=== PATIENT | male | born 1965 | race Caucasian/White ===

== ENCOUNTER 2020-06-01 14:59 | Emergency (ER) | payer MEDICAID ==
[2020-06-01] MEDS ORDERED: Sodium Chloride 0.9% 2.5 ML Syringe FLUSH PRN (15:16)
[2020-06-01] MEDS ORDERED: Sodium Chloride 0.9% 10 ML Syringe FLUSH PRN (15:16)
--- NOTE | 2020-06-01 15:55 | CR ---
Chest: AP portable view of the chest was obtained. Comparison: No prior chest imaging is available. Diffusely opacified right hemithorax is seen. Finding may represent large right-sided pleural effusion if patient has had no previous surgery. There is no acute parenchymal change within the left chest. Bony structures are grossly intact. Impression: 1. Diffusely opacified right hemithorax as described above. Diagnostic code #5 This report was dictated in MDT
[2020-06-01 16:11] LABS: BLOOD UREA NITROGEN,BUN 19 mg/dL (7.0-18.0); CARBON DIOXIDE,CO2 29.1 mmol/L (21.0-32.0); CHLORIDE,CL 104 mmol/L (98-107); GLUCOSE RANDOM 135 mg/dL (74-106); LIPASE 114 U/L (73-393); POTASSIUM,K 3.8 mmol/L (3.5-5.1); SODIUM,NA 139 mmol/L (136-148)
--- NOTE | 2020-06-01 16:22 | EDM.PDOC ---
ED HPI GENERAL MEDICAL PROBLEM - General Chief Complaint: General Stated Complaint: POSSIBLE FLUID IN ABDOMEN Time Seen by Provider: 06/01/20 15:04 - History of Present Illness INITIAL COMMENTS - FREE TEXT/NARRATIVE: HISTORY AND PHYSICAL: History of present illness: This 54-year-old male with a past medical history of hepatitis C, liver cancer, right-sided pleural effusion, and chronic peripheral edema presents emergency department complaining of abdominal pain and distention. Patient states that he has had paracentesis in the past and a thoracentesis and also had a pleurodesis secondary to chronic recurrent pleural effusion on the right side. Patient states that he now has generalized abdominal pain and tenderness that is worsening. Feels very tense. Hurts all the time. And is worried because this is new for him. In the past he has not required high-volume paracentesis. Review of systems: A 10-point review of systems, other than pertinent positives and negatives as stated per HPI, is otherwise negative. Past medical history: As per history of present illness and as reviewed below otherwise noncontributory. Surgical history: As per history of present illness and as reviewed below otherwise noncontr ibutory. Social history: No reported history of drug or alcohol abuse. Family history: As per history of present illness and as reviewed below otherwise noncontributory. Physical exam: VITAL SIGNS: Reviewed. GENERAL: Appears chronically ill with stigmata of liver failure. HEAD: No signs of head trauma. EYES: Pupils are equal. Extraocular motions intact. EARS: Hearing grossly intact. MOUTH: Oropharynx is normal. NECK: Bilateral JVD, no adenopathy CHEST: No breath sounds on the right side. Left-sided breath sounds are normal CARDIAC: Mild tachycardia. No murmur appreciated. VASCULAR: Peripheral pulses normal and equal in all extremities. ABDOMEN: Tense distention, ascitic wave, pain with percussion. Hepatomegaly is present MUSCULOSKELETAL: Bilateral lower extremity edema with compression dressings. NEUROLOGIC EXAM: Alert and oriented x 3. No focal sensory or motor deficits. Speech normal. Follows commands. PSYCHIATRIC: Mood normal. SKIN: No rash or lesions. Initial Differential Diagnosis & Plan: Differential diagnosis includes SBP, ascites, pleural effusion, worsening of metastasis. I will evaluate for SBP with paracentesis. Will obtain baseline labs, chest x- ray and EKG. Definitive disposition and diagnosis as appropriate pending reevaluation and review of above. generalized Pain Score (Numeric/FACES): 6 - Related Data Allergies Allergy/AdvReac Type Severity Reaction Status Date / Time codeine Allergy Other Verified 06/01/20 15:22 ketorolac [From Toradol] Allergy Headache Verified 06/01/20 15:22 Home Meds: Home Meds Furosemide [Lasix] ASDIRECTED 06/01/20 [History] dexAMETHasone [Dexamethasone] 2 mg PO DAILY 06/01/20 [History] oxyCODONE 5 mg PO Q4H 06/01/20 [History] oxyCODONE ER [OxyCONTIN] 20 mg PO BID 06/01/20 [History] Past Medical History Oncologic (Cancer) History: Reports: Liver - Past Surgical History Other Respiratory Surgeries/Procedures: pleurral effusion Other GI Surgeries/Procedures: paracentesis as needed. Social & Family History - Tobacco Use Smoking Status *Q: Never Smoker - Recreational Drug Use Recreational Drug Use: Yes Recreational Drug Type: Reports: Marijuana/Hashish Recreational Drug Use Frequency: Socially ED ROS GENERAL - Review of Systems Review Of Systems: See Below (noted) ED EXAM, GENERAL - Physical Exam Exam: See Below (noted) ED GENERAL MEDICAL PROCEDURES - Additional/Other Procedure(s) Other (Free Text) Procedure(s): LIMITED ABDOMINAL ULTRASOUND BY ER PROVIDER Self performed and read; images archived Location: Abdomen Indication: Distension Image archived 1. Liver identified 2. Large ascites seen 3. Floating bowel noted Impression: Ascites noted Signed by: Dru Mei MD PROCEDURE: ULTRASOUND GUIDED PARACENTESIS INDICATION: Evaluation of Ascites INFORMED CONSENT: The risks, benefits, and alternatives to the procedure were discussed with the patient including but not limited to bleeding, infection, or damage to surrounding structures such as vessels or intra-abdominal organs. The patient expressed understanding and wishes to proceed with the procedure. PROCEDURE DETAILS: A fluid pocket was identified in the patients using bedside ultrasound. The patient's abdomen was then prepped and draped in a sterile fashion using chlorhexidine solution and drapes. The skin overlying this area was anesthetized with 10cc 1% lidocaine without epinephrine. The paracentesis catheter over needle was introduced into the peritoneal space. Straw-colored colored fluid was obtained with gentle suction on the syringe. The needle was withdrawn, and the catheter was placed to suction using sterile suction containers. A total of 2500 cc of fluid was obtained. The catheter then was withdrawn, and a bandage was applied. COMPLICATIONS: None; the patient tolerated the procedure well without any immediate complications. 12 lead EKG interpretation Obtained: June 01, 2020 at 1527 hrs. Rhythm: Sinus Rate: 6 [place]: Normal Intervals: Left ventricular hypertrophy is noted ST/T Segments: No acute ischemic changes Interpretation: This rhythm with left ventricular hypertrophy Course - Vital Signs Last Recorded V/S: Last Vital Signs Temp 97.0 F 06/01/20 15:13 Pulse 86 06/01/20 16:24 Resp 14 06/01/20 16:24 BP 110/74 06/01/20 16:24 Pulse Ox 95 06/01/20 16:24 - Orders/Labs/Meds Orders: Active Orders 24 hr Category Date Time Status Cardiac Monitoring [RC] . DIRECTED Care 06/01/20 15:16 Active EKG Documentation Completion [RC] STAT Care 06/01/20 15:17 Active Pulse Oximetry [RC] ASDIRECTED Care 06/01/20 15:16 Active CULTURE BLOOD [BC] Stat Lab 06/01/20 15:50 Results CULTURE BLOOD [BC] Stat Lab 06/01/20 15:53 Results CULTURE BODY FLUID + SMEAR [RM] Stat Lab 06/01/20 15:57 Received Sodium Chloride 0.9% [Saline Flush] Med 06/01/20 15:16 Active 10 ml FLUSH ASDIRECTED PRN Sodium Chloride 0.9% [Saline Flush] Med 06/01/20 15:16 Active 2.5 ml FLUSH ASDIRECTED PRN Blood Culture x2 Reflex Set [OM.PC] Stat Oth 06/01/20 15:17 Ordered Saline Lock Insert [OM.PC] Stat Oth 06/01/20 15:16 Ordered Medication Orders Sodium Chloride (Saline Flush) 10 ml FLUSH ASDIRECTED PRN PRN Reason: Keep Vein Open Last Admin: 06/01/20 15:36 Dose: 10 ml Documented by: LJ Sodium Chloride (Saline Flush) 2.5 ml FLUSH ASDIRECTED PRN PRN Reason: Keep Vein Open Last Admin: 06/01/20 15:36 Dose: 2.5 ml Documented by: LJ Labs: Laboratory Tests 06/01/20 06/01/20 06/01/20 Range/Units 15:26 15:26 15:26 WBC 8.62 (4.0-11.0) K/uL RBC 3.48 L (4.50-5.90) M/uL Hgb 9.9 L (13.0-17.0) g/dL Hct 32.1 L (38.0-50.0) % MCV 92.2 (80.0-98.0) fL MCH 28.4 (27.0-32.0) pg MCHC 30.8 L (31.0-37.0) g/dL RDW Std Deviation 58.6 (28.0-62.0) fl RDW Coeff of Lanny 17 H (11.0-15.0) % Plt Count 144 L (150-400) K/uL MPV 11.10 (7.40-12.00) fL Neut % (Auto) 73.1 (48.0-80.0) % Lymph % (Auto) 15.9 L (16.0-40.0) % [place] % (Auto) 8.2 (0.0-15.0) % Eos % (Auto) 2.3 (0.0-7.0) % Baso % (Auto) 0.5 (0.0-1.5) % Neut # (Auto) 6.3 H (1.4-5.7) K/uL Lymph # (Auto) 1.4 (0.6-2.4) K/uL [place] # (Auto) 0.7 (0.0-0.8) K/uL Eos # (Auto) 0.2 (0.0-0.7) K/uL Baso # (Auto) 0.0 (0.0-0.1) K/uL Nucleated RBC % 0.0 /100WBC Nucleated RBCs # 0 K/uL INR 1.15 APTT 29.5 (18.6-31.3) SEC Lactate 1.3 (0.20-2.00) mmol/L Sodium (136-148) mmol/L Potassium (3.5-5.1) mmol/L Chloride (98-107) mmol/L Carbon Dioxide (21.0-32.0) mmol/L BUN (7.0-18.0) mg/dL Creatinine (0.8-1.3) mg/dL Est Cr Clr Drug Dosing mL/min Estimated GFR (MDRD) ml/min Glucose (74-106) mg/dL Calcium (8.5-10.1) mg/dL Total Bilirubin (0.2-1.0) mg/dL AST (15-37) IU/L ALT (14-63) IU/L Alkaline Phosphatase (46-116) U/L Total Protein (6.4-8.2) g/dL Albumin (3.4-5.0) g/dL Globulin (2.6-4.0) g/dL Albumin/Globulin Ratio (0.9-1.6) Lipase (73-393) U/L Fluid Type Fluid Color Fluid Appearance Fluid WBC /uL Fluid RBC /uL Fluid Mononuclear Cell % Fl Polymorphonucl Cell % 06/01/20 06/01/20 Range/Units 15:26 15:57 WBC (4.0-11.0) K/uL RBC (4.50-5.90) M/uL Hgb (13.0-17.0) g/dL Hct (38.0-50.0) % MCV (80.0-98.0) fL MCH (27.0-32.0) pg MCHC (31.0-37.0) g/dL RDW Std Deviation (28.0-62.0) fl RDW Coeff of Lanny (11.0-15.0) % Plt Count (150-400) K/uL MPV (7.40-12.00) fL Neut % (Auto) (48.0-80.0) % Lymph % (Auto) (16.0-40.0) % [place] % (Auto) (0.0-15.0) % Eos % (Auto) (0.0-7.0) % Baso % (Auto) (0.0-1.5) % Neut # (Auto) (1.4-5.7) K/uL Lymph # (Auto) (0.6-2.4) K/uL [place] # (Auto) (0.0-0.8) K/uL Eos # (Auto) (0.0-0.7) K/uL Baso # (Auto) (0.0-0.1) K/uL Nucleated RBC % /100WBC Nucleated RBCs # K/uL INR APTT (18.6-31.3) SEC Lactate (0.20-2.00) mmol/L Sodium 139 (136-148) mmol/L Potassium 3.8 (3.5-5.1) mmol/L Chloride 104 (98-107) mmol/L Carbon Dioxide 29.1 (21.0-32.0) mmol/L BUN 19 H (7.0-18.0) mg/dL Creatinine 1.0 (0.8-1.3) mg/dL Est Cr Clr Drug Dosing 86.18 mL/min Estimated GFR (MDRD) > 60.0 ml/min Glucose 135 H (74-106) mg/dL Calcium 9.2 (8.5-10.1) mg/dL Total Bilirubin 1.5 H (0.2-1.0) mg/dL AST 61 H (15-37) IU/L ALT 51 (14-63) IU/L Alkaline Phosphatase 235 H (46-116) U/L Total Protein 6.5 (6.4-8.2) g/dL Albumin 2.3 L (3.4-5.0) g/dL Globulin 4.2 H (2.6-4.0) g/dL Albumin/Globulin Ratio 0.6 L (0.9-1.6) Lipase 114 (73-393) U/L Fluid Type OTH Fluid Color YELLOW Fluid Appearance SLIGHTLY CLOUDY Fluid WBC 227 /uL Fluid RBC < 3000 /uL Fluid Mononuclear Cell 87 % Fl Polymorphonucl Cell 13 % Meds: Medications Generic Name Dose Route Start Last Admin Trade Name Freq PRN Reason Stop Dose Admin Sodium Chloride 10 ml 06/01/20 15:16 06/01/20 15:36 Saline Flush FLUSH 10 ml ASDIRECTED PRN Administration Keep Vein Open Sodium Chloride 2.5 ml 06/01/20 15:16 06/01/20 15:36 Saline Flush FLUSH 2.5 ml ASDIRECTED PRN Administration Keep Vein Open Departure - Departure Time of Disposition: 16:54 Disposition: Home, Self-Care 01 Condition: Good Clinical Impression: Abdominal ascites, Pleural effusion, Edema - Discharge Information *PRESCRIPTION DRUG MONITORING PROGRAM REVIEWED*: Not Applicable *COPY OF PRESCRIPTION DRUG MONITORING REPORT IN PATIENT JOHN: Not Applicable Instructions: Paracentesis, Care After, Pleural Effusion, Edema, Scrotal Swelling Referrals: PCP,Not In Area [Primary Care Provider] - Forms: ED Department Discharge Additional Instructions: The following information is given to patients seen in the emergency department who are being discharged to home. This information is to outline your options for follow-up care. We provide all patients seen in our emergency department with a follow-up referral. The need for follow-up, as well as the timing and circumstances, are variable depending upon the specifics of your emergency department visit. If you don't have a primary care physician on staff, we will provide you with a referral. We always advise you to contact your personal physician following an emergency department visit to inform them of the circumstance of the visit and for follow-up with them and/or the need for any referrals to a consulting specialist. The emergency department will also refer you to a specialist when appropriate. This referral assures that you have the opportunity for follow-up care with a specialist. All of these measure are taken in an effort to provide you with optimal care, which includes your follow-up. Thank you for coming to the [facility] urgency department for your care today. It was Dr. Mei's pleasure to take care of you. Please take your medications as prescribed. You may need to increase your diuretic dose. I recommend taking an additional tablet of your diuretic once daily for 5 to 7 days. This should help your swelling. Please return for worsening, pain, or any other concerns. Under all circumstances we always encourage you to contact your private physician who remains a resource for coordinating your care. When calling for follow-up care, please make the office aware that this follow-up is from your recent emergency room visit. If for any reason you are refused follow-up, please contact the [facility] Emergency Department at and asked to speak to the emergency department charge nurse. Sepsis Event Note (ED) - Evaluation Sepsis Screening Result: No Definite Risk - Focused Exam Vital Signs: Vital Signs Temp Pulse Resp BP Pulse Ox 06/01/20 16:24 86 14 110/74 95 06/01/20 16:00 88 15 136/76 97 06/01/20 15:13 97.0 F 89 17 108/75 94 L - My Orders Last 24 Hours: My Active Orders 06/01/20 15:16 Cardiac Monitoring [RC] . DIRECTED Pulse Oximetry [RC] ASDIRECTED Sodium Chloride 0.9% [Saline Flush] 10 ml FLUSH ASDIRECTED PRN Sodium Chloride 0.9% [Saline Flush] 2.5 ml FLUSH ASDIRECTED PRN Saline Lock Insert [OM.PC] Stat 06/01/20 15:17 EKG Documentation Completion [RC] STAT Blood Culture x2 Reflex Set [OM.PC] Stat 06/01/20 15:50 CULTURE BLOOD [BC] Stat 06/01/20 15:53 CULTURE BLOOD [BC] Stat 06/01/20 15:57 CULTURE BODY FLUID + SMEAR [RM] Stat - Assessment/Plan Last 24 Hours: My Active Orders 06/01/20 15:16 Cardiac Monitoring [RC] . DIRECTED Pulse Oximetry [RC] ASDIRECTED Sodium Chloride 0.9% [Saline Flush] 10 ml FLUSH ASDIRECTED PRN Sodium Chloride 0.9% [Saline Flush] 2.5 ml FLUSH ASDIRECTED PRN Saline Lock Insert [OM.PC] Stat 06/01/20 15:17 EKG Documentation Completion [RC] STAT Blood Culture x2 Reflex Set [OM.PC] Stat 06/01/20 15:50 CULTURE BLOOD [BC] Stat 06/01/20 15:53 CULTURE BLOOD [BC] Stat 06/01/20 15:57 CULTURE BODY FLUID + SMEAR [RM] Stat
== END 2020-06-01 17:12 | disposition home or self-care (01) ==
LOC: MW.ED 14:59
DX: R18.8 Other ascites (principal); J90 Pleural effusion, not elsewhere classified; R00.0 Tachycardia, unspecified; Z88.5 Allergy status to narcotic agent; Z88.6 Allergy status to analgesic agent; Z79.899 Other long term (current) drug therapy
CPT/HCPCS: 36415; 49083; 71045; 71045-26; 80053; 83605; 83690; 85025; 85610; 85730; 87040; 87070; 87205; 89050; 93005; 99284-25

== ENCOUNTER 2020-06-23 16:28 | Emergency (ER) | payer MEDICAID, OTHER ==
--- NOTE | 2020-06-23 17:17 | EDM.PDOC ---
<Dario Serna - Last Filed: 06/23/20 19:33> ED HPI GENERAL MEDICAL PROBLEM - General Chief Complaint: General Stated Complaint: FLUID BUILD UP Time Seen by Provider: 06/23/20 16:37 Source of Information: Reports: Patient, Old Records History Limitations: Reports: No Limitations - History of Present Illness INITIAL COMMENTS - FREE TEXT/NARRATIVE: 54-year-old male with past medical history of metastatic hepatocellular carcinoma, hepatitis C, recurrent pleural effusion status post pleural thesis presenting with abdominal distention, abdominal pain, and peripheral edema. Patient has been seen in the emergency department several times for recurrent ascites due to his liver cancer. He feels that his ascites has reaccumulated and he complains of typical abdominal distention and pain. Denies any fever, chills, emesis, hematemesis, diarrhea, or GI bleed. He is concerned that he may need a therapeutic paracentesis for symptomatic relief. He is not on anticoagulation. Patient is new to [place] and has most of his physician care established in [place]. He is not currently under the care of a primary physician, oncologist, or a palliative medicine clinic. ROS: A 10-point review of systems was negative, except as noted in the HPI (or in the ROS section of this note). Past medical history: Reviewed, no additional pertinent history. Surgical history: Reviewed in system, no additional pertinent history. Social history: Reviewed in system, no additional pertinent history. Family history: Reviewed in system, no additional pertinent history. PHYSICAL EXAM Vital signs reviewed. Nursing notes reviewed. Constitutional: Awake, alert, non-distressed. Head: Normocephalic, atraumatic. Eyes: EOMI, conjunctiva normal, no discharge, no scleral icterus. Ears, Nose, Throat: External ears and nose normal, moist oral mucosa. Cardiovascular: 2+ radial pulse, capillary refill less than 2 seconds. Pulmonary: normal work of breathing, no accessory muscle use. Mildly diminished lung sounds in the bases. On nasal cannula. Abdomen/GI: Ascitic/distended, nontender, no guarding or rigidity, no masses. Musculoskeletal: No deformities. Integumentary: Appropriate color for ethnicity, warm, dry, no pallor or jaundice, no rash. Neurologic: Alert, answering questions appropriately, normal speech, no facial droop, moving all extremities well. Psychiatric: Appropriate mood and affect, normal thought process. general Pain Score (Numeric/FACES): 9 - Related Data Allergies Allergy/AdvReac Type Severity Reaction Status Date / Time codeine Allergy Other Verified 06/23/20 17:06 ketorolac [From Toradol] Allergy Headache Verified 06/23/20 17:06 Home Meds: Home Meds Furosemide [Lasix] ASDIRECTED 06/01/20 [History] dexAMETHasone [Dexamethasone] 2 mg PO DAILY 06/01/20 [History] oxyCODONE 5 mg PO Q4H 06/01/20 [History] oxyCODONE ER [OxyCONTIN] 20 mg PO BID 06/01/20 [History] oxyCODONE 5 mg PO Q4H 3 Days #18 tab 06/23/20 [Rx] oxyCODONE ER [OxyCONTIN] 20 mg PO Q12HR PRN 5 Days #10 tab.er 06/23/20 [Rx] Past Medical History - Past Health History Medical/Surgical History: Denies Medical/Surgical History Respiratory History: Reports: Other (See Below) Oncologic (Cancer) History: Reports: Liver - Past Surgical History Other Respiratory Surgeries/Procedures: pleurral effusion Other GI Surgeries/Procedures: paracentesis as needed. Social & Family History - Tobacco Use Smoking Status *Q: Never Smoker - Caffeine Use Caffeine Use: Reports: None - Recreational Drug Use Recreational Drug Use: Yes Recreational Drug Type: Reports: Marijuana/Hashish Recreational Drug Use Frequency: Socially ED ROS GENERAL - Review of Systems Review Of Systems: See Below ED EXAM, GENERAL - Physical Exam Exam: See Below Course - Vital Signs Text/Narrative:: Labs show mild normocytic anemia, mild thrombocytopenia. INR normal, electrolytes reassuring. Normal renal function. Troponin negative. Bilirubin elevated at 1.6. Alkaline phosphatase 177. Mildly low calcium. Chest x-ray shows a stable large right-sided pleural effusion, patient is status post right- sided pleurodesis. Oxygen use by nasal cannula seems to be at baseline the patient has no symptoms of acute respiratory compromise. Given oxycodone for pain. Informed consent was obtained and the patient underwent therapeutic paracentesis by myself as dictated in the procedure note. We will plan to drain a total of 3 L of ascitic fluid. Labs were sent off to evaluate for SBP. These are pending at time of shift change, my colleague Dr. Garcia will follow up on the results, anticipate discharge home. Patient will need to be referred to family medicine clinic here in [place] to establish primary care. Departure - Departure Disposition: Home, Self-Care 01 Clinical Impression: Ascites Qualifiers: Ascites type: malignant Qualified Code(s): R18.0 - Malignant ascites - Discharge Information Prescriptions: oxyCODONE 5 mg PO Q4H 3 Days #18 tab oxyCODONE ER [OxyCONTIN] 20 mg PO Q12HR PRN 5 Days #10 tab.er PRN Reason: Pain Instructions: Ascites Drainage Catheter Placement, Ascites, Liver Cancer Referrals: [facility] [Outside] [facility] [Ordering Only Provider] - Forms: ED Department Discharge Additional Instructions: The following information is given to patients seen in the emergency department who are being discharged to home. This information is to outline your options for follow-up care. We provide all patients seen in our emergency department with a follow-up referral. The need for follow-up, as well as the timing and circumstances, are variable depending upon the specifics of your emergency department visit. If you don't have a primary care physician on staff, we will provide you with a referral. We always advise you to contact your personal physician following an emergency department visit to inform them of the circumstance of the visit and for follow-up with them and/or the need for any referrals to a consulting specialist. The emergency department will also refer you to a specialist when appropriate. This referral assures that you have the opportunity for follow-up care with a specialist. All of these measure are taken in an effort to provide you with optimal care, which includes your follow-up. Under all circumstances we always encourage you to contact your private ph ysician who remains a resource for coordinating your care. When calling for follow-up care, please make the office aware that this follow-up is from your recent emergency room visit. If for any reason you are refused follow-up, please contact the [facility] Emergency Department at and asked to speak to the emergency department charge nurse. Sepsis Event Note (ED) - Evaluation Sepsis Screening Result: No Definite Risk ED ABDOMINAL/GI PROCEDURES - Additional/Other Procedure(s) Procedure(s) (Free Text): PROCEDURE: THERAPEUTIC PARACENTESIS Consent: obtained written, placed in chart Indication: Ascites Location: Abdomen - right lower quadrant Anesthesia: Local, 1% Lidocaine 2mL Technique: sterile, standard Details: ultrasound used to locate landmarks catheter over needle Complications: None apparent Fluid: straw-colored Volume Removed: 3,000 mL <Ron Garcia - Last Filed: 06/23/20 19:56> Course - Vital Signs Last Recorded V/S: Last Vital Signs Temp 97.9 F 06/23/20 17:00 Pulse 80 06/23/20 18:55 Resp 16 06/23/20 17:00 BP 110/53 L 06/23/20 18:55 Pulse Ox 98 06/23/20 18:55 - Orders/Labs/Meds Orders: Active Orders 24 hr Category Date Time Status CULTURE BODY FLUID + SMEAR [RM] Stat Lab 06/23/20 18:31 Received Labs: Laboratory Tests 06/23/20 06/23/20 06/23/20 Range/Units 17:24 17:24 17:24 WBC 7.05 (4.0-11.0) K/uL RBC 3.56 L (4.50-5.90) M/uL Hgb 10.3 L (13.0-17.0) g/dL Hct 32.1 L (38.0-50.0) % MCV 90.2 (80.0-98.0) fL MCH 28.9 (27.0-32.0) pg MCHC 32.1 (31.0-37.0) g/dL RDW Std Deviation 54.6 (28.0-62.0) fl RDW Coeff of Lanny 16 H (11.0-15.0) % Plt Count 140 L (150-400) K/uL MPV 10.90 (7.40-12.00) fL Neut % (Auto) 74.4 (48.0-80.0) % Lymph % (Auto) 12.9 L (16.0-40.0) % Cotton % (Auto) 10.6 (0.0-15.0) % Eos % (Auto) 1.8 (0.0-7.0) % Baso % (Auto) 0.3 (0.0-1.5) % Neut # (Auto) 5.2 (1.4-5.7) K/uL Lymph # (Auto) 0.9 (0.6-2.4) K/uL Cotton # (Auto) 0.8 (0.0-0.8) K/uL Eos # (Auto) 0.1 (0.0-0.7) K/uL Baso # (Auto) 0.0 (0.0-0.1) K/uL Nucleated RBC % 0.0 /100WBC Nucleated RBCs # 0 K/uL INR 1.22 Sodium 135 L (136-148) mmol/L Potassium 3.8 (3.5-5.1) mmol/L Chloride 102 (98-107) mmol/L Carbon Dioxide 28.2 (21.0-32.0) mmol/L BUN 14 (7.0-18.0) mg/dL Creatinine 1.2 (0.8-1.3) mg/dL Est Cr Clr Drug Dosing 69.55 mL/min Estimated GFR (MDRD) > 60.0 ml/min Glucose 119 H (74-106) mg/dL Calcium 8.1 L (8.5-10.1) mg/dL Total Bilirubin 1.6 H (0.2-1.0) mg/dL AST 62 H (15-37) IU/L ALT 44 (14-63) IU/L Alkaline Phosphatase 177 H (46-116) U/L Troponin I (0.000-0.056) ng/mL Total Protein 6.2 L (6.4-8.2) g/dL Albumin 2.4 L (3.4-5.0) g/dL Globulin 3.8 (2.6-4.0) g/dL Albumin/Globulin Ratio 0.6 L (0.9-1.6) Fluid Type Fluid Color Fluid Appearance Fluid WBC /uL Fluid RBC /uL Fluid Mononuclear Cell % Fl Polymorphonucl Cell % Fluid Glucose mg/dL Fluid Albumin g/dL 06/23/20 06/23/20 Range/Units 17:24 18:31 WBC (4.0-11.0) K/uL RBC (4.50-5.90) M/uL Hgb (13.0-17.0) g/dL Hct (38.0-50.0) % MCV (80.0-98.0) fL MCH (27.0-32.0) pg MCHC (31.0-37.0) g/dL RDW Std Deviation (28.0-62.0) fl RDW Coeff of Lanny (11.0-15.0) % Plt Count (150-400) K/uL MPV (7.40-12.00) fL Neut % (Auto) (48.0-80.0) % Lymph % (Auto) (16.0-40.0) % Cotton % (Auto) (0.0-15.0) % Eos % (Auto) (0.0-7.0) % Baso % (Auto) (0.0-1.5) % Neut # (Auto) (1.4-5.7) K/uL Lymph # (Auto) (0.6-2.4) K/uL Cotton # (Auto) (0.0-0.8) K/uL Eos # (Auto) (0.0-0.7) K/uL Baso # (Auto) (0.0-0.1) K/uL Nucleated RBC % /100WBC Nucleated RBCs # K/uL INR Sodium (136-148) mmol/L Potassium (3.5-5.1) mmol/L Chloride (98-107) mmol/L Carbon Dioxide (21.0-32.0) mmol/L BUN (7.0-18.0) mg/dL Creatinine (0.8-1.3) mg/dL Est Cr Clr Drug Dosing mL/min Estimated GFR (MDRD) ml/min Glucose (74-106) mg/dL Calcium (8.5-10.1) mg/dL Total Bilirubin (0.2-1.0) mg/dL AST (15-37) IU/L ALT (14-63) IU/L Alkaline Phosphatase (46-116) U/L Troponin I < 0.050 (0.000-0.056) ng/mL Total Protein (6.4-8.2) g/dL Albumin (3.4-5.0) g/dL Globulin (2.6-4.0) g/dL Albumin/Globulin Ratio (0.9-1.6) Fluid Type PER Fluid Color YELLOW Fluid Appearance SLIGHTLY CLOUDY Fluid WBC 197 /uL Fluid RBC < 3000 /uL Fluid Mononuclear Cell 94 % Fl Polymorphonucl Cell 6 % Fluid Glucose 136 mg/dL Fluid Albumin <0.6 g/dL Meds: Medications Discontinued Medications Generic Name Dose Route Start Last Admin Trade Name Nikolai PRN Reason Stop Dose Admin Hydromorphone HCl 1 mg 06/23/20 19:32 Dilaudid IVPUSH 06/23/20 19:33 ONETIME ONE Oxycodone HCl 10 mg 06/23/20 17:29 06/23/20 17:45 Oxycodone PO 06/23/20 17:30 10 mg ONETIME ONE Administration Oxycodone HCl Confirm 06/23/20 17:29 06/23/20 17:44 Oxycodone Administered 06/23/20 17:30 Not Given Dose 10 mg .ROUTE .STK-MED ONE - Re-Assessments/Exams Free Text/Narrative Re-Assessment/Exam: 06/23/20 19:44 Labs unremarkable; will d/c with FM f/u Departure - Departure Time of Disposition: 19:43 Condition: Good - Discharge Information *PRESCRIPTION DRUG MONITORING PROGRAM REVIEWED*: No *COPY OF PRESCRIPTION DRUG MONITORING REPORT IN PATIENT JOHN: No Sepsis Event Note (ED) - Focused Exam Vital Signs: Vital Signs Temp Pulse Resp BP Pulse Ox 06/23/20 18:55 80 110/53 L 98 06/23/20 18:41 82 100/53 L 97 06/23/20 18:36 84 109/56 L 97 06/23/20 17:56 83 139/75 98 06/23/20 17:00 97.9 F 95 16 124/67 95
[2020-06-23] MEDS ORDERED: oxyCODONE 5 MG Tab ONE (17:29)
[2020-06-23] MEDS ORDERED: oxyCODONE 5 MG Tab PO ONE (17:29)
[2020-06-23 17:56] LABS: BLOOD UREA NITROGEN,BUN 14 mg/dL (7.0-18.0); CARBON DIOXIDE,CO2 28.2 mmol/L (21.0-32.0); CHLORIDE,CL 102 mmol/L (98-107); GLUCOSE RANDOM 119 mg/dL (74-106); POTASSIUM,K 3.8 mmol/L (3.5-5.1); SODIUM,NA 135 mmol/L (136-148)
--- NOTE | 2020-06-23 19:31 | CR ---
INDICATION: Dyspnea. Known pleural effusion. TECHNIQUE: AP portable chest. COMPARISON: 06/01/2020. FINDINGS: Again seen is complete opacification of the right hemithorax. This is presumably related to a large pleural effusion given the clinical history. The left lung appears relatively well expanded and clear. There is no significant change in the visualized cardiac silhouette. No left-sided pleural effusion is seen. No left-sided pneumothorax. IMPRESSION: Stable radiographic appearance of the chest, with complete opacification of the right hemithorax presumably related a large pleural effusion, although other etiologies are not excluded. Dictated by Joshua Parks MD @ 06/23/2020 7:30:04 PM Dictated by: Joshua Parks MD @ 06/23/2020 19:30:09 (Electronically Signed)
[2020-06-23] MEDS ORDERED: HYDROmorphone 1 MG/ML Syringe IVPUSH ONE (19:32)
== END 2020-06-23 20:32 | disposition home or self-care (01) ==
LOC: MW.ED 16:28
DX: R18.0 Malignant ascites (principal); Z88.5 Allergy status to narcotic agent; Z88.6 Allergy status to analgesic agent
CPT/HCPCS: 36415; 49083; 71045; 80053; 82945; 84484; 85025; 85610; 87070; 87205; 89050; 99284; A9270; 99283

== ENCOUNTER 2020-07-14 16:14 | Emergency (ER) | payer MEDICAID, OTHER ==
[2020-07-14] MEDS ORDERED: Sodium Chloride 0.9% 10 ML Syringe FLUSH PRN (16:49)
[2020-07-14] MEDS ORDERED: Sodium Chloride 0.9% 2.5 ML Syringe FLUSH PRN (16:49)
[2020-07-14] MEDS ORDERED: HYDROmorphone 1 MG/ML Syringe IVPUSH ONE (16:51)
--- NOTE | 2020-07-14 17:00 | EDM.PDOC ---
ED HPI GENERAL MEDICAL PROBLEM - General Chief Complaint: Abdominal Pain Stated Complaint: ABDOMEN DRAINAGE Time Seen by Provider: 07/14/20 16:22 Source of Information: Reports: Patient - History of Present Illness INITIAL COMMENTS - FREE TEXT/NARRATIVE: History of present illness: 54-year-old male presenting with increased abdominal girth, distention, pain and difficulty breathing, previous similar symptoms due to ascites buildup. He has hep C and liver cancer with end-stage liver disease with frequent accumulations of ascitic fluid. Last drained via paracentesis in the emergency department here 3 weeks ago. He reports basically for the last 9 weeks he has been having every 3 week paracenteses done in the ER. He has not been able to follow-up outpatient with the primary care physician, radiologist or GI physician to schedule routine paracenteses due to his insurance. He has not had any fevers or chills. Does have pain from the distention and some shortness of breath although he also does report some chronic difficulty breathing for which he is on 3 to 4 L of oxygen [id number] chronically. Review of systems: As per history of present illness and below otherwise all systems reviewed and negative. Past medical history: As per history of present illness and as reviewed below otherwise noncontributory. Surgical history: As per history of present illness and as reviewed below otherwise noncontributory. Pleurodesis, paracentesis Social history: No reported history of drug or alcohol abuse. Family history: As per history of present illness and as reviewed below otherwise noncontributory. Physical exam: GEN: no acute distress, chronically ill-appearing HEENT: Atraumatic, normocephalic, mucous membranes moist, Neck: supple, nontender, trachea midline. Lungs: No respiratory distress. Heart: RRR Abdomen: Soft, very distended, ascites, +fluid wave, no signs of trauma, no focalized tenderness, mild diffuse tenderness Back: nontender Extremities: Atraumatic. Neurovascularly intact. Neuro: Awake, alert, oriented. Neuro Exam nonfocal. Skin: warm, dry, no lesions Diagnostics: Labs, ultrasound Therapeutics: [] MDM: Impression: [] Plan: [] Definitive disposition and diagnosis as appropriate pending reevaluation and review of above. Abdomen Pain Score (Numeric/FACES): 8 - Related Data Allergies Allergy/AdvReac Type Severity Reaction Status Date / Time codeine Allergy Other Verified 07/14/20 16:50 ketorolac [From Toradol] Allergy Headache Verified 07/14/20 16:50 Home Meds: Home Meds Furosemide [Lasix] 40 mg PO ASDIRECTED 06/01/20 [History] dexAMETHasone [Dexamethasone] 2 mg PO DAILY 06/01/20 [History] Spironolactone [Aldactone] 25 mg PO ASDIRECTED 07/14/20 [History] Past Medical History - Past Health History Medical/Surgical History: Denies Medical/Surgical History Respiratory History: Reports: Other (See Below) Oncologic (Cancer) History: Reports: Liver - Past Surgical History Other Respiratory Surgeries/Procedures: pleurral effusion Other GI Surgeries/Procedures: paracentesis as needed. Social & Family History - Caffeine Use Caffeine Use: Reports: None ED ROS GENERAL - Review of Systems Review Of Systems: See Below (See HPI) ED EXAM, GI/ABD - Physical Exam Exam: See Below (See HPI) Course - Vital Signs Text/Narrative:: Abdominal pain and distention, likely ascites reaccumulation. No fever or chills. Do not suspect SBP. However the patient does report increased difficulty with breathing and therefore will attempt paracentesis here. Bedside ultrasound performed which does show moderate ascites fluid. Radiology ultrasound also ordered, will check labs. Expected liver abnormalities. Serum WBC not elevated. Mildly anemic. Renal function preserved. Paracentesis successful. No cloudiness. Does not appear infectious. Culture, cell count and body fluid analysis all sent. No signs of infection on body fluid analysis labs. Last Recorded V/S: Last Vital Signs Temp 97.9 F 07/14/20 18:48 Pulse 93 07/14/20 18:48 Resp 18 07/14/20 18:48 BP 112/64 07/14/20 18:48 Pulse Ox 98 07/14/20 18:48 - Orders/Labs/Meds Orders: Active Orders 24 hr Category Date Time Status ALBUMIN,BODY FLUID [BF] Stat Lab 07/14/20 17:44 Results CULTURE BODY FLUID + SMEAR [RM] Stat Lab 07/14/20 17:44 Received Saline Lock Insert [OM.PC] Stat Oth 07/14/20 16:50 Ordered Labs: Laboratory Tests 07/14/20 07/14/20 07/14/20 Range/Units 17:10 17:10 17:10 WBC 7.03 (4.0-11.0) K/uL RBC 3.49 L (4.50-5.90) M/uL Hgb 10.0 L (13.0-17.0) g/dL Hct 31.2 L (38.0-50.0) % MCV 89.4 (80.0-98.0) fL MCH 28.7 (27.0-32.0) pg MCHC 32.1 (31.0-37.0) g/dL RDW Std Deviation 53.8 (28.0-62.0) fl RDW Coeff of Lanny 16 H (11.0-15.0) % Plt Count 158 (150-400) K/uL MPV 11.10 (7.40-12.00) fL Neut % (Auto) 85.9 H (48.0-80.0) % Lymph % (Auto) 8.5 L (16.0-40.0) % Humphreys % (Auto) 5.1 (0.0-15.0) % Eos % (Auto) 0.4 (0.0-7.0) % Baso % (Auto) 0.1 (0.0-1.5) % Neut # (Auto) 6.0 H (1.4-5.7) K/uL Lymph # (Auto) 0.6 (0.6-2.4) K/uL Humphreys # (Auto) 0.4 (0.0-0.8) K/uL Eos # (Auto) 0.0 (0.0-0.7) K/uL Baso # (Auto) 0.0 (0.0-0.1) K/uL Nucleated RBC % 0.0 /100WBC Nucleated RBCs # 0 K/uL INR 1.24 Sodium 136 (136-148) mmol/L Potassium 3.8 (3.5-5.1) mmol/L Chloride 98 (98-107) mmol/L Carbon Dioxide 27.8 (21.0-32.0) mmol/L BUN 18 (7.0-18.0) mg/dL Creatinine 1.3 (0.8-1.3) mg/dL Est Cr Clr Drug Dosing 66.29 mL/min Estimated GFR (MDRD) 57.3 ml/min Glucose 148 H (74-106) mg/dL Calcium 9.3 (8.5-10.1) mg/dL Total Bilirubin 1.6 H (0.2-1.0) mg/dL AST 63 H (15-37) IU/L ALT 46 (14-63) IU/L Alkaline Phosphatase 202 H (46-116) U/L Total Protein 6.8 (6.4-8.2) g/dL Albumin 2.6 L (3.4-5.0) g/dL Globulin 4.2 H (2.6-4.0) g/dL Albumin/Globulin Ratio 0.6 L (0.9-1.6) Fluid Type Fluid Color Fluid Appearance Fluid WBC /uL Fluid RBC /uL Fluid Mononuclear Cell % Fl Polymorphonucl Cell % Fluid Total Protein g/dL Fluid Albumin g/dL 07/14/20 07/14/20 Range/Units 17:44 17:44 WBC (4.0-11.0) K/uL RBC (4.50-5.90) M/uL Hgb (13.0-17.0) g/dL Hct (38.0-50.0) % MCV (80.0-98.0) fL MCH (27.0-32.0) pg MCHC (31.0-37.0) g/dL RDW Std Deviation (28.0-62.0) fl RDW Coeff of Lanny (11.0-15.0) % Plt Count (150-400) K/uL MPV (7.40-12.00) fL Neut % (Auto) (48.0-80.0) % Lymph % (Auto) (16.0-40.0) % Humphreys % (Auto) (0.0-15.0) % Eos % (Auto) (0.0-7.0) % Baso % (Auto) (0.0-1.5) % Neut # (Auto) (1.4-5.7) K/uL Lymph # (Auto) (0.6-2.4) K/uL Humphreys # (Auto) (0.0-0.8) K/uL Eos # (Auto) (0.0-0.7) K/uL Baso # (Auto) (0.0-0.1) K/uL Nucleated RBC % /100WBC Nucleated RBCs # K/uL INR Sodium (136-148) mmol/L Potassium (3.5-5.1) mmol/L Chloride (98-107) mmol/L Carbon Dioxide (21.0-32.0) mmol/L BUN (7.0-18.0) mg/dL Creatinine (0.8-1.3) mg/dL Est Cr Clr Drug Dosing mL/min Estimated GFR (MDRD) ml/min Glucose (74-106) mg/dL Calcium (8.5-10.1) mg/dL Total Bilirubin (0.2-1.0) mg/dL AST (15-37) IU/L ALT (14-63) IU/L Alkaline Phosphatase (46-116) U/L Total Protein (6.4-8.2) g/dL Albumin (3.4-5.0) g/dL Globulin (2.6-4.0) g/dL Albumin/Globulin Ratio (0.9-1.6) Fluid Type PER Fluid Color YELLOW Fluid Appearance CLOUDY Fluid WBC 0 /uL Fluid RBC < 3000 /uL Fluid Mononuclear Cell 93 % Fl Polymorphonucl Cell 7 % Fluid Total Protein 1.0 g/dL Fluid Albumin 0.4 g/dL Meds: Medications Discontinued Medications Generic Name Dose Route Start Last Admin Trade Name Freq PRN Reason Stop Dose Admin Hydromorphone HCl 1 mg 07/14/20 16:51 07/14/20 17:13 Dilaudid IVPUSH 07/14/20 16:52 1 mg ONETIME ONE Administration Sodium Chloride 10 ml 07/14/20 16:49 07/14/20 17:15 Saline Flush FLUSH 10 ml ASDIRECTED PRN Administration Keep Vein Open Sodium Chloride 2.5 ml 07/14/20 16:49 07/14/20 17:14 Saline Flush FLUSH 2.5 ml ASDIRECTED PRN Administration Keep Vein Open - Re-Assessments/Exams Free Text/Narrative Re-Assessment/Exam: 07/14/20 18:31 Tolerated paracentesis well. Post procedure ultrasound shows significant improvement in drainage of ascites. Patient feels much better. Shortness of breath is minimal now and abdominal girth is much improved. He reports his abdominal pain is much improved as well. We will observe the patient post procedure and then trial ambulation. 07/14/20 18:43 The patient was able to ambulate well back and forth to the bathroom, without any difficulty or dizziness. The patient is feeling much better and would like to be discharged home. Departure - Departure Time of Disposition: 18:45 Disposition: Home, Self-Care 01 Clinical Impression: End stage liver disease Abdominal ascites Qualifiers: Ascites type: malignant Qualified Code(s): R18.0 - Malignant ascites Abdominal pain Qualifiers: Abdominal location: generalized Qualified Code(s): R10.84 - Generalized abdominal pain - Discharge Information Instructions: Paracentesis, Care After, Abdominal Pain, Adult, [id number], Ascites, Paracentesis Referrals: PCP,None [Primary Care Provider] - Forms: ED Department Discharge Additional Instructions: Please follow-up with 1 of the primary care clinics listed below or 1 of the doctors you have established in [place]. Return to the ER if you develop severe pain, high fever, worsening difficulty breathing or rapid reaccumulation of your ascites fluid. Continue to wear your compression socks to avoid future fluid r eaccumulation. The following information is given to patients seen in the emergency department who are being discharged to home. This information is to outline your options for follow-up care. We provide all patients seen in our emergency department with a follow-up referral. The need for follow-up, as well as the timing and circumstances, are variable depending upon the specifics of your emergency department visit. If you don't have a primary care physician on staff, we will provide you with a referral. We always advise you to contact your personal physician following an emergency department visit to inform them of the circumstance of the visit and for follow-up with them and/or the need for any referrals to a consulting specialist. The emergency department will also refer you to a specialist when appropriate. This referral assures that you have the opportunity for follow-up care with a specialist. All of these measure are taken in an effort to provide you with optimal care, which includes your follow-up. Under all circumstances we always encourage you to contact your private physician who remains a resource for coordinating your care. When calling for follow-up care, please make the office aware that this follow-up is from your recent emergency room visit. If for any reason you are refused follow-up, please contact the [facility] Emergency Department at and asked to speak to the emergency department charge nurse. [facility] - Primary Care [address] [place] [address] [facility] [address] [place] [address] Sepsis Event Note (ED) - Evaluation Sepsis Screening Result: No Definite Risk - Focused Exam Vital Signs: Vital Signs Temp Pulse Resp BP Pulse Ox 07/14/20 18:48 97.9 F 93 18 112/64 98 07/14/20 18:31 98 131/76 99 07/14/20 18:02 101 H 135/80 99 07/14/20 16:44 97.7 F 104 H 22 H 125/77 96 - My Orders Last 24 Hours: My Active Orders 07/14/20 16:50 Saline Lock Insert [OM.PC] Stat 07/14/20 17:44 ALBUMIN,BODY FLUID [BF] Stat CULTURE BODY FLUID + SMEAR [RM] Stat - Assessment/Plan Last 24 Hours: My Active Orders 07/14/20 16:50 Saline Lock Insert [OM.PC] Stat 07/14/20 17:44 ALBUMIN,BODY FLUID [BF] Stat CULTURE BODY FLUID + SMEAR [RM] Stat Paracentesis - Paracentesis Paracentesis Indication: ascites Location: RLQ Skin prep: Sterile Drapes, Chlorhexidine, Alcohol Ultrasound guided: Yes Local anesthesia: lidocaine 1 % Local anesthesia volume: 5cc Number of Attempts: 1 Device Used: 8 Fr kit device Fluid: yellow Fluids sent: gram stain and culture, cell count, protein Complications: No Dressing: adhesive dressing Paracentesis comment: Time out 17:42 Paracentesis performed under ultrasound guidance after marking, and with 8 [place] catheter kit. Fluid yellow/jermaine-colored. No purulent appearance. Patient tolerating well. Symptoms significantly improved afterward.
[2020-07-14 17:39] LABS: CARBON DIOXIDE,CO2 27.8 mmol/L (21.0-32.0); POTASSIUM,K 3.8 mmol/L (3.5-5.1)
--- NOTE | 2020-07-14 18:59 | US ---
Limited abdominal ultrasound: Multiple real-time images of the 4 quadrants were obtained. Findings: Moderate amount of ascites is seen. Ascites is seen in all 4 quadrants. Impression: 1. Ascites. Diagnostic code #5 This report was dictated in MDT
== END 2020-07-14 18:51 | disposition home or self-care (01) ==
LOC: MW.ED 16:14
DX: K72.90 Hepatic failure, unspecified without coma (principal); R18.0 Malignant ascites; Z88.5 Allergy status to narcotic agent; Z88.6 Allergy status to analgesic agent; Z79.899 Other long term (current) drug therapy
CPT/HCPCS: 36415; 49083; 76705; 80053; 84157; 85025; 85610; 87070; 87205; 89050; 96374; 99285; J1170; 99283